=== PATIENT | female | born 1975 | race Caucasian/White ===

== ENCOUNTER 2017-08-03 21:25 | Emergency (ER) | payer OTHER ==
[~2017-08-03] VITALS: Ht 157.5 cm; Wt 70.3 kg
[2017-08-03 22:31] LABS: HEMATOCRIT 36.3 % (36.0-46.0); HEMOGLOBIN 12.1 G/DL (11.9-15.5); MCH 29.9 PG (29.0-34.0); MCHC 33.3 G/DL (30.0-36.0); MCV 89.6 FL (83-99); PLATELET COUNT 246 K/uL (156-360); RBC DIS.WIDTH-CV 14.3 % (11.8-14.6); RBC DIS.WIDTH-SD 46.5 % (39-53); RED BLOOD COUNT 4.05 M/uL (3.80-5.20)
[2017-08-03 22:39] LABS: CHLORIDE 107 mEq/L (99-109); POTASSIUM 4.1 mEq/L (3.7-5.4); SODIUM 136 mEq/L (136-147)
[2017-08-03 22:41] LABS: GLUCOSE 118 mg/dL (70-99)
[2017-08-03 22:44] LABS: CREATININE 1.1 mg/dL (0.6-1.3); GFR ESTIMATE (CALCULATED) 58 mL/min/
[2017-08-03 22:44] LABS: APPEARANCE CLEAR ((CLEAR)); BILIRUBIN NEGATIVE; BLOOD NEGATIVE; COLOR YELLOW ((YELLOW)); GLUCOSE (STRIP) NEGATIVE; KETONES NEGATIVE; LEUKOCYTES NEGATIVE; NITRITE NEGATIVE; PROTEIN (STRIP) NEGATIVE; SPECIFIC GRAVITY 1.014 (1.000-1.030); UROBILINOGEN 0.2 MG/DL (0.2-1.0)
[2017-08-03 22:45] LABS: UREA NITROGEN (BUN) 16 mg/dL (9-23)
[2017-08-03 22:52] LABS: QUANTITATIVE HCG < 4.0 MIU/ML
[2017-08-03] MEDS ORDERED: ROXICODONE5 MG PO (23:45)
[2017-08-04 00:54] VITALS: BP 120/86
== END 2017-08-04 00:54 | disposition home or self-care (01) ==
LOC: EME 21:25 → RME 21:25
PROVIDERS: Nurse Practitioner Family
DX: G89.29 Other chronic pain (principal); M54.5 Low back pain; F17.200 Nicotine dependence, unspecified, uncomplicated; K75.9 Inflammatory liver disease, unspecified; M79.604 Pain in right leg; M79.605 Pain in left leg; Z98.1 Arthrodesis status
CPT/HCPCS: 80048; 81003; 84702; 85027; 99281; 99283

== ENCOUNTER 2017-10-22 15:15 | Emergency (ER) | payer OTHER ==
[~2017-10-22] VITALS: Ht 157.5 cm; Wt 79.2 kg
[~2017-10-22 15:15] MED LIST: ROXICODONE5 MG PO
[2017-10-22] MEDS ORDERED: NORCO 5/3251 TABLET PO (18:10)
[2017-10-22] MEDS ORDERED: MOTRIN600 MG PO (18:10)
[2017-10-22] MEDS ORDERED: ULTRAM50 MG PO (19:39)
[2017-10-22 19:55] VITALS: BP 114/86
== END 2017-10-22 19:55 | disposition home or self-care (01) ==
LOC: EME 15:15
DX: S70.01XA Contusion of right hip, initial encounter (principal); W18.30XA Fall on same level, unspecified, initial encounter; M54.30 Sciatica, unspecified side; G89.29 Other chronic pain; M25.751 Osteophyte, right hip; M43.16 Spondylolisthesis, lumbar region; Z98.1 Arthrodesis status; Z88.8 Allergy status to other drugs, medicaments and biological substances; Z88.6 Allergy status to analgesic agent; Z91.041 Radiographic dye allergy status
CPT/HCPCS: 72100; 73502; 99281; 99283